=== PATIENT | male | born 1950 | race Caucasian/White ===

== ENCOUNTER 2019-08-21 10:16 | Day surgery (SDC) | payer MEDICARE, OTHER ==
[~2019-08-21] VITALS: Ht 180.3 cm; Wt 114.7 kg
[2019-08-21] VITALS (9 sets, daily range): BP systolic 158–184; BP diastolic 69–87
[2019-08-21] MEDS ORDERED: normal saline 1,000 ML IV SCH (10:45)
[2019-08-21] MEDS ORDERED: diphenhydrAMINE 25mg capsule PO PRN (10:45)
[2019-08-21] MEDS ORDERED: LOSA50TA3 PO (11:23)
[2019-08-21] MEDS ORDERED: TERA5CAP4 PO (11:23)
[2019-08-21] MEDS ORDERED: INSU100V37 SQ (11:23)
[2019-08-21] MEDS ORDERED: ATOR80TA PO (11:23)
[2019-08-21] MEDS ORDERED: APIX5TAB3 PO (11:23)
[2019-08-21] MEDS ORDERED: AMLO10TA4 PO (11:23)
[2019-08-21] MEDS ORDERED: CHOL10002 PO (11:23)
[2019-08-21] MEDS ORDERED: METF1000 PO (11:23)
[2019-08-21] MEDS ORDERED: METO100T14 PO (11:23)
[2019-08-21] MEDS ORDERED: HYDR25TA4 PO (11:23)
[2019-08-21] MEDS ORDERED: iohexol 350 MG/ML 50ML vial IV ONE (11:55)
[2019-08-21] MEDS ORDERED: fentaNYL/PF 50MCG/1 ML 2ML syringe ONE ×2 (11:55→12:50)
[2019-08-21] MEDS ORDERED: iohexol 350MG/ML 100ml bottle IV ONE ×3 (11:55→13:18)
[2019-08-21] MEDS ORDERED: midazolam 2 mg/2 ml injection ONE ×2 (11:55→12:50)
[2019-08-21] MEDS ORDERED: LIDOcaine 1% (10mg/ml)w/preservative injection 20ml MDV ONE (11:55)
[2019-08-21 12:30] LABS: ALBUMIN 3.4 G/DL (3.4-5.0); ANION GAP 9 (8-16); BASOPHILS % (AUTO) 0.5 % (0-1); BLOOD UREA NITROGEN 25 MG/DL (7-18); BUN/CREATININE RATIO 18.4 (5.4-32.0); CALCIUM 9.1 MG/DL (8.5-10.1); CHLORIDE 108 MMOL/L (99-107); CREATININE 1.36 MG/DL (0.60-1.10); EOSINOPHILS # (AUTO) 0.2 X10'3 (0-0.9); EOSINOPHILS % (AUTO) 1.7 % (0-6); GLUCOSE 118 MG/DL (70-104); HEMATOCRIT 32.8 % (42.0-52.0); HEMOGLOBIN 11.3 g/dl (14.0-17.9); LYMPHOCYTES # (AUTO) 2.4 X10'3 (1.1-4.8); LYMPHOCYTES % (AUTO) 25.3 % (21-51); MAGNESIUM 1.7 MG/DL (1.5-2.4); MEAN CORPUSCULAR HEMOGLOBIN 30.6 PG (27.0-31.0); MEAN CORPUSCULAR HGB CONC 34.3 g/dL (33.0-36.5); MEAN PLATELET VOLUME 7.7 FL (7.4-10.4); MONOCYTES # (AUTO) 0.7 X10'3 (0-0.9); MONOCYTES % (AUTO) 6.9 % (2-12); NEUTROPHILS # (AUTO) 6.2 X10'3 (1.8-7.7); NEUTROPHILS % (AUTO) 65.6 % (42-75); PLATELET COUNT 211 X10'3 (140-440); POTASSIUM 3.9 MMOL/L (3.5-5.1); RED BLOOD COUNT 3.68 X10'6 (4.70-6.10); RED CELL DISTRIBUTION WIDTH 14.2 % (11.5-14.5); SODIUM 142 MMOL/L (135-145); TOTAL CARBON DIOXIDE 24.6 MMOL/L (24-32); WHITE BLOOD COUNT 9.5 X10'3 (4.5-11.0); eGFR 52 ML/MIN
[2019-08-21] MEDS ORDERED: heparin 1,000unit/ml 10ml vial 10 ML ONE (12:45)
[2019-08-21] MEDS ORDERED: clopidogrel 300mg tablet ONE (13:37)
[2019-08-21] MEDS ORDERED: HYDROcodone/acetaminophen 5mg/325mg tablet PO PRN (14:15)
[2019-08-21] MEDS ORDERED: ondansetron/PF 4mg/2ml inj IV PRN (14:15)
[2019-08-21] MEDS ORDERED: normal saline 1000ml 1,000 ML IV SCH (14:15)
[2019-08-21] MEDS ORDERED: HYDROcodone/acetaminophen 10/325mg tab PO PRN (14:15)
[2019-08-21] MEDS ORDERED: proCHLORperazine 10 MG/2 ml inj IV PRN (14:15)
== END 2019-08-21 17:00 | disposition home or self-care (01) ==
LOC: SSTAY O 10:16
PROVIDERS: ATTEND Internal Medicine Cardiovascular Disease
DX: R06.09 Other forms of dyspnea (principal); I25.10 Atherosclerotic heart disease of native coronary artery without angina pectoris; I48.0 Paroxysmal atrial fibrillation; G47.30 Sleep apnea, unspecified; E11.9 Type 2 diabetes mellitus without complications; I10 Essential (primary) hypertension; E78.5 Hyperlipidemia, unspecified; Z96.659 Presence of unspecified artificial knee joint; Z82.49 Family history of ischemic heart disease and other diseases of the circulatory system; Z86.73 Personal history of transient ischemic attack (TIA), and cerebral infarction without residual deficits
CPT/HCPCS: 36415; 80048; 83735; 85025; 85610; 93005; 93458; 99152; 99153; C1725; C1769; C1874; C1894; C9600; J1644; J2001; J2250; J3010; J7030; Q0163; Q9967; A4620; A6258; C1760; C9601

== ENCOUNTER 2019-09-07 09:53 | Day surgery (SDC) | payer MEDICARE, OTHER ==
[~2019-09-07] VITALS: Ht 180.3 cm; Wt 113.4 kg
[~2019-09-07 09:53] MED LIST: AMLO10TA4 PO; APIX5TAB3 PO; ATOR80TA PO; CHOL10002 PO; HYDR25TA4 PO; INSU100V37 SQ; LOSA50TA3 PO; METF1000 PO; METO100T14 PO; TERA5CAP4 PO
[2019-09-07] MEDS ORDERED: normal saline 1000ml 1,000 ML IV SCH (10:10)
[2019-09-07 10:30] VITALS: BP 148/81
[2019-09-07 11:25] LABS: BASOPHILS # (AUTO) 0.1 X10'3 (0-0.2); BASOPHILS % (AUTO) 0.8 % (0-1); EOSINOPHILS # (AUTO) 0.1 X10'3 (0-0.9); EOSINOPHILS % (AUTO) 1.5 % (0-6); HEMATOCRIT 39.7 % (42.0-52.0); HEMOGLOBIN 13.4 g/dl (14.0-17.9); LYMPHOCYTES # (AUTO) 2.4 X10'3 (1.1-4.8); LYMPHOCYTES % (AUTO) 29.2 % (21-51); MEAN CORPUSCULAR HGB CONC 33.7 g/dL (33.0-36.5); MEAN CORPUSCULAR VOLUME 88.9 FL (78-98); MEAN PLATELET VOLUME 7.8 FL (7.4-10.4); MONOCYTES # (AUTO) 0.5 X10'3 (0-0.9); MONOCYTES % (AUTO) 6.5 % (2-12); PLATELET COUNT 280 X10'3 (140-440); RED BLOOD COUNT 4.47 X10'6 (4.70-6.10); RED CELL DISTRIBUTION WIDTH 14.5 % (11.5-14.5); WHITE BLOOD COUNT 8.1 X10'3 (4.5-11.0)
[2019-09-07] MEDS ORDERED: PROP150T2 PO (11:33)
[2019-09-07] MEDS ORDERED: CLOP75TA15 PO (11:33)
[2019-09-07 11:36] LABS: ALBUMIN 4.1 G/DL (3.4-5.0); ANION GAP 14 (8-16); BLOOD UREA NITROGEN 21 MG/DL (7-18); BUN/CREATININE RATIO 14.6 (5.4-32.0); CALCIUM 9.7 MG/DL (8.5-10.1); CHLORIDE 101 MMOL/L (99-107); CREATININE 1.44 MG/DL (0.60-1.10); GLUCOSE 140 MG/DL (70-104); MAGNESIUM 1.5 MG/DL (1.5-2.4); POTASSIUM 3.8 MMOL/L (3.5-5.1); SODIUM 139 MMOL/L (135-145); TOTAL CARBON DIOXIDE 24.3 MMOL/L (24-32); eGFR 48 ML/MIN
[2019-09-07] MEDS ORDERED: ceFAZolin 1GM/D5W- ADD-VANTAGE 100 ML IV ONE (12:08)
[2019-09-07] MEDS ORDERED: vancomycin 1,000mg inj ONE (12:08)
[2019-09-07] MEDS ORDERED: LIDOcaine 1% W/epiNEPHrine 1:100,000 20ml vial ONE ×2 (12:09→13:48)
[2019-09-07] MEDS ORDERED: fentaNYL/PF 50MCG/1 ML 2ML syringe ONE ×2 (12:09→12:51)
[2019-09-07] MEDS ORDERED: midazolam 2 mg/2 ml injection ONE ×2 (12:09→12:51)
[2019-09-07] MEDS ORDERED: proCHLORperazine 10 MG/2 ml inj ONE (12:33)
[2019-09-07] MEDS ORDERED: iohexol 350 MG/ML 50ML vial IV ONE (12:58)
[2019-09-07 14:30] VITALS: BP 163/67
[2019-09-07] MEDS ORDERED: normal saline 1000ml 1,000 ML IV ONE (14:40)
[2019-09-07 14:45] VITALS: BP 189/76
[2019-09-07 15:00] VITALS: BP 171/73
[2019-09-07 15:15] VITALS: BP 159/68
[2019-09-07 15:45] VITALS: BP 166/68
== END 2019-09-07 16:00 | disposition home or self-care (01) ==
LOC: SSTAY O 09:53
PROVIDERS: ATTEND Internal Medicine Cardiovascular Disease
DX: I49.5 Sick sinus syndrome (principal); I48.0 Paroxysmal atrial fibrillation; I25.10 Atherosclerotic heart disease of native coronary artery without angina pectoris; G47.30 Sleep apnea, unspecified; E11.9 Type 2 diabetes mellitus without complications; I10 Essential (primary) hypertension; E78.5 Hyperlipidemia, unspecified; Z86.73 Personal history of transient ischemic attack (TIA), and cerebral infarction without residual deficits; Z79.899 Other long term (current) drug therapy; Z79.84 Long term (current) use of oral hypoglycemic drugs; Z96.659 Presence of unspecified artificial knee joint; Z88.8 Allergy status to other drugs, medicaments and biological substances; Z95.5 Presence of coronary angioplasty implant and graft
CPT/HCPCS: 33208; 33286; 36415; 71045; 80048; 82948; 83735; 85025; 85610; 93005; 99152; 99153; C1785; C1894; C1898; J0690; J0780; J2250; J3010; J3370; J7030; J7050; Q9967; A4565; A4620